=== PATIENT | male | born 1995 | race Caucasian/White ===

== ENCOUNTER 2017-02-01 10:59 | Emergency (ER) | payer OTHER ==
[2017-02-01 11:42] VITALS: BP 133/86
--- NOTE | 2017-02-01 12:42 | UC ---
Olu Paredes Angela, scribed for Mayi Lugo MD on 02/01/17 at 1228 . Back Pain HPI - HPI Summary HPI Summary: This pt is a 21 y/o male presenting to [facility] c/o lower back pain and hip pain. Pt reports a prior muscle injury to his lower back when he was teenager. He states his lower back pain is worse than his hip pain. Pt has stretched previously with relief, but has not been able to get relief recently. Pt denies numbness or tingling in LE, weakness in LE, urinary or bowel incontinence, weakness in LE. no pain in penis or testicles. Pt states walking with a slight limp and thinks this is why his hip hurts. No h/o surgery for this. Pt has previously had PT For his injury He has taken 800 mg ibuprofen at 1000 today with no relief. He denies penile or testicular pain. Pt has PMHx of anxiety and depression. He takes clonazepam in the mornings and has no relief to his back pain. Pt works in [place] and does not do heavy lifting. No trauma Patients medication reviewed this visit. - History of Current Complaint Chief Complaint: UCBackPain Stated Complaint: back and hip pain Time Seen by Provider: 02/01/17 12:05 Hx Obtained From: Patient Onset/Duration: Lasting Days Timing: Lasting Days Back Pain: Is Discrete @ - lower back pain, hip pain Aggravating: Movement, Lifting Alleviating: Position Associated Signs And Symptoms: Negative: Fever, Weakness, Numbness, Tingling, Abdominal Pain, Bladder Incontinence, Bowel Incontinence Related History: Previous Back Injury - Allergies/Home Medications Allergies/Adverse Reactions: Allergies Allergy/AdvReac Type Severity Reaction Status Date / Time No Known Allergies Allergy Verified 02/17/15 15:56 PMH/Surg Hx/FS Hx/Imm Hx Previously Healthy: Yes Other Endocrine History: DENIES: diabetes Other Cardiovascular History: DENIES: HTN Respiratory History: Asthma Psychological History: Anxiety, Depression - Surgical History Surgical History: None - Family History Known Family History: Positive: Other - Depression - Social History Occupation: Employed Full-time - [employer] Alcohol Use: Weekly Substance Use Type: None Smoking Status (MU): Never Smoked Tobacco Review of Systems Constitutional: Negative Skin: Negative Eyes: Negative ENT: Negative Respiratory: Negative Cardiovascular: Negative Gastrointestinal: Negative Genitourinary: Negative Motor: Negative Neurovascular: Negative Musculoskeletal: Other: - lower back pain, hip pain Neurological: Negative Psychological: Negative Is Patient Immunocompromised?: No All Other Systems Reviewed And Are Negative: Yes Physical Exam Triage Information Reviewed: Yes Appearance: Well-Appearing, No Pain Distress, Well-Nourished Vital Signs: Initial Vital Signs Temp 98.4 F 02/01/17 11:38 Pulse 58 02/01/17 11:38 Resp 18 02/01/17 11:38 BP 133/86 02/01/17 11:38 Pulse Ox 100 02/01/17 11:38 Vital Signs Reviewed: Yes Eye Exam: Normal Eyes: Positive: Conjunctiva Clear ENT Exam: Normal ENT: Positive: Normal ENT inspection, Hearing grossly normal, Pharynx normal, TMs normal Dental Exam: Normal Neck exam: Normal Neck: Positive: Supple, Nontender, No Lymphadenopathy Respiratory Exam: Normal Respiratory: Positive: Chest non-tender, Lungs clear, Normal breath sounds, No respiratory distress, No accessory muscle use Cardiovascular Exam: Normal Cardiovascular: Positive: RRR, No Murmur, Pulses Normal Abdominal Exam: Normal Abdomen Description: Positive: Nontender, No Organomegaly, Soft. Negative: CVA Tenderness (R), CVA Tenderness (L) Bowel Sounds: Positive: Present Musculoskeletal: Positive: Strength Intact, ROM Intact, No Edema, Other: - no pain spinous process C/T/L/S + SLE + flex/ext knee, ankle + great toe extension + external rotation and abduction of hip + TTP lower back paraspinal sacral area at level of SI joints Neurological Exam: Normal Neurological: Positive: Alert, Muscle Tone Normal Psychological Exam: Normal Psychological: Positive: Normal Response To Family Skin Exam: Normal Back Pain Course/Dx - Course Course Of Treatment: Pt with discomfort b/l SI joint area - no direct trauma - h /o similar with episodes of increasing discomfort. Pt with pain in left anterior hip from "limping". Little relief with Motrin. neurovascullarly intact. recommend heat, stretch. flexeril at bedtime. APAP. rest. PT referral. Pt comfortable and in agreement with plan - Differential Dx/Diagnosis Provider Diagnoses: low back discomfort Discharge - Discharge Plan Condition: Stable Disposition: HOME Prescriptions: Cyclobenzaprine TAB* [Flexeril 10 MG TAB*] 10 mg PO QPM PRN #5 tab PRN Reason: Spasms Methylprednisolone [Medrol Dosepak 4 MG*] 4 mg PO .SEE ALEKSANDR INSTRUCTION #1 tab Patient Education Materials: Low Back Strain (ED) Referrals: [facility] PHYSICIAN REFERRAL [Outside] No Primary Care Phys,NOPCP [Primary Care Provider] - Additional Instructions: - Stay well hydrated. Drink plenty of non-alcoholic, non-caffinated beverages - Take Ibuprofen 3 times a day with food. do NOT take for more than 4-5 days - Okay to take flexeril, muscle relaxer, at bedtime - do not take when taking clonazepam. this medication may cause drowsiness. do NOT drive, operate machinery or drink alcohol while taking flexeril - apply moist heat to your back - once your muscles are warm, slow, gentle stretching exercises - you have been given the contact information for the physician referral center - call to for assistance establishing with a new doctor PHYSICAL THERAPY REFERRAL: You have been prescribed physical therapy. Treatments may include stretching, exercise, application of heat or cold, and other modalities. After an injury, PT can reduce swelling and pain. In recovery, PT is used to restore mobility and strength. Your specific treatment goals are: Reduction of Swelling (EGS, US, ice as needed) __x___ Pain Reduction (EGS, US, ice as needed) TENS Pack Fitting and Instruction Wound Hydrotherapy Preservation of Mobility __x___ Congregation of Mobility Strength Congregation Work or Sports Hardening This instruction sheet also serves as your PHYSICAL THERAPY REFERRAL! Please take it with you to the therapist, so he/she will be aware of your diagnosis and treatment plan. You may see the physical therapist of your choice for these treatments, but may wish to check with your insurance to be sure the provider you select is covered. It's important to see the doctor to whom you have been referred for follow up. The documentation as recorded by the Olu ludwig Angela accurately reflects the service I personally performed and the decisions made by , Mayi Lugo MD.
== END 2017-02-01 13:02 | disposition home or self-care (01) ==
LOC: UCEAST 10:59
DX: M54.5 Low back pain (principal); J45.909 Unspecified asthma, uncomplicated
CPT/HCPCS: 99212; G0463

== ENCOUNTER 2018-01-25 18:27 | Emergency (ER) | payer OTHER ==
[2018-01-25 18:47] VITALS: BP 120/77
--- NOTE | 2018-01-25 20:03 | UC ---
Respiratory Complaint HPI - HPI Summary HPI Summary: 22 y/o male presents to the urgent care c/o mild SOB and dry cough w/ +PND and nasal congestion w/ clear nasal discharge for the past 2 days. Pt reports PMHX of asthma which has been controlled until now. He doesn't have his albuterol inhaler currently. Pt has been exercising regularly. He also has Hx of seasonal allergies so he is unsure what triggered his symptoms. Pt denies fever, pain, DIAZ , dizziness, chest pain, abdominal pain, N/V/D. - History of Current Complaint Chief Complaint: UCRespiratory Stated Complaint: ASTHMA, AND CHEST CONGESTION Time Seen by Provider: 01/25/18 19:49 Hx Obtained From: Patient Onset/Duration: Gradual Onset, Lasting Days - 2 days, Still Present, Worse Since - today Timing: Intermittent Episodes Severity Initially: Mild Severity Currently: Mild Pain Intensity: 0 Pain Scale Used: 0-10 Numeric Character: Cough: Nonproductive Aggravating Factors: Recumbent Position Alleviating Factors: Nothing Associated Signs And Symptoms: Positive: Dyspnea - mild, Wheezing - mild this morning, URI, Nasal Congestion Related History: Seasonal Allergies - Risk Factors Pulmonary Embolism Risk Factors: Negative Cardiac Risk Factors: Negative Pseudomonas Risk Factors: Negative Tuberculosis Risk Factors: Negative - Allergies/Home Medications Allergies/Adverse Reactions: Allergies Allergy/AdvReac Type Severity Reaction Status Date / Time No Known Allergies Allergy Verified 02/17/15 15:56 Home Medications: Home Medications Ibuprofen 200 mg PO 01/25/18 [History] PMH/Surg Hx/FS Hx/Imm Hx Previously Healthy: Yes Respiratory History: Asthma, Bronchitis, Pneumonia Psychological History: Anxiety, Depression - Surgical History Surgical History: None - Family History Known Family History: Positive: Cardiac Disease, Hypertension, Respiratory Disease - asthma, Other - Depression - Social History Occupation: Employed Full-time Lives: With Family Alcohol Use: None Substance Use Type: None Smoking Status (MU): Never Smoked Tobacco Review of Systems Constitutional: Negative Skin: Negative Eyes: Negative ENT: Negative, Nasal Discharge - clear, Sinus Congestion, Sinus Pain/Tenderness Respiratory: Shortness Of Breath - mild, Cough - dry, Other - mild wheezing Cardiovascular: Negative Gastrointestinal: Negative Genitourinary: Negative Motor: Negative Neurovascular: Negative Musculoskeletal: Negative Neurological: Negative Psychological: Negative Is Patient Immunocompromised?: No All Other Systems Reviewed And Are Negative: Yes Physical Exam - Summary Physical Exam Summary: Vitals: reviewed General: Well developed, well-nourished male patient with NAD. Head and face: Normocephalic and atraumatic, Positive tenderness over the frontal and maxillary sinuses.. Eyes: PERRLA, EOMI x 2. Normal conjunctiva. No eye discharge. ENT: Ears and TM with normal limits. Nose: edematous and erythematous nasal mucosa with with yellowish discharge and erythematous mucosa. Pharynx with erythema, no exudate. Neck: Supple, no JVD, no carotid bruits and no lymphadenopathy. Lungs: Positve breath sounds bilaterally, mild wheezing in theB/L posterior upper lungs, no rhonchi or crackles or rales. CVS: RRR, S1 and S2 present no murmurs or gallops appreciated. Abdomen: soft nontender with positive bowel sounds. Extremities: no edema noted. Neuro: WNL. Skin: warm and dry Triage Information Reviewed: Yes Vital Signs: Initial Vital Signs Temp 98.3 F 01/25/18 18:42 Pulse 67 01/25/18 18:42 Resp 20 01/25/18 18:42 BP 120/77 01/25/18 18:42 Pulse Ox 99 01/25/18 18:42 Diagnostic Evaluation - Laboratory O2 Sat by Pulse Oximetry: 99 Respiratory Course/Dx - Course Course Of Treatment: 22 y/o male presents to the urgent care c/o mild SOB and dry cough w/ +PND and nasal congestion w/ clear nasal discharge for the past 2 days. Pt reports PMHX of asthma which has been controlled until now. He doesn't have his albuterol inhaler currently. Pt has been exercising regularly. He also has Hx of seasonal allergies so he is unsure what triggered his symptoms. Pt denies fever, pain, DIAZ, dizziness, chest pain, abdominal pain, N/V/D. Pt w/ rhinosinusitis and mild posterior upper lungs w/ wheezing on examination. O2Sat: 99%. Pt given 1 albuterol Tx at the clinic. Pt felt better and B/L lungs cleared. Pt Rx Loratadine PO, Flonase nasal spray and albuterol inhaler to alleviate symptoms. Advised to increase fluid intake, rest and eat well. If worsening symptoms advised to go to the Er for fruther management. D/C instructions explained. Pt understood and agreed w/ plan of care. - Differential Dx/Diagnosis Differential Diagnosis/HQI/PQRI: Asthma, Bronchitis, Laryngitis, Lower Resp Infection, Sinusitis Provider Diagnoses: 1- Acute Rhinosinusitis. 2- Wheezing Discharge - Sign-Out/Discharge Documenting (check all that apply): Patient Departure All imaging exams completed and their final reports reviewed: No Studies - Discharge Plan Condition: Stable Disposition: HOME Prescriptions: Albuterol HFA INHALER* [Ventolin HFA Inhaler*] 1 - 2 puff INH Q4H PRN #1 mdi PRN Reason: Wheezing Fluticasone NASAL SPRAY 50MCG* [Flonase NASAL SPRAY 50MCG*] 2 spray BOTH NARES DAILY #1 btl Loratadine/Pseudoephedrine [Loratadine-D 12 Hour Tablet] 1 each PO BID #30 tab.er.12h Patient Education Materials: Asthma (ED), Rhinosinusitis (ED) Referrals: [facility] [place] [facility]IAN REFERRAL [Outside] - 3 Days Additional Instructions: 1- Please increase fluid intake and rest. use albuterol inhaler to alleviate SOB and Wheezing 2-Use Flonase as directed to help drain fluid. Also buy saline drops to clear sinuses 3-Take Loratadine PO to alleviates sinus congestion 4-Return to the clinic or PCP if symptoms do not improve for further management and treatment. 5- If symptoms do not improve or worsen or your develop SOB with fever and severe wheezing please go immediately to the ER further evaluation and treatment. 4- F/u with your PCP in 3 days for further management on your Asthma - Billing Disposition and Condition Condition: STABLE Disposition: Home
[2018-01-25] MEDS ORDERED: Albuterol/Ipratropium NEB.SOL* Albuterol 2.5 MG/Ipratropium 0.5 MG 3 ML INH ONE (20:08)
[2018-01-25] MEDS ORDERED: Albuterol 2.5 MG/3 ML NEB.SOL* (0.083%) INH ONE (20:12)
== END 2018-01-25 20:42 | disposition home or self-care (01) ==
LOC: UCEAST 18:27
DX: J01.90 Acute sinusitis, unspecified (principal); J45.909 Unspecified asthma, uncomplicated
CPT/HCPCS: 99212; G0463